=== PATIENT | female | born 1940 | race Caucasian/White ===

== ENCOUNTER → 2024-06-05 | Outpatient (CLI) | payer MEDICARE, BC ==
[2024-06-05 13:51] VITALS: BP 147/77; PULSE 66; RESP 16; TEMP 97.8
--- NOTE | 2024-06-05 14:32 | P.SLEEP ---
History of Present Illness DATE: 06/05/2024 CONSULTATION/NEW PATIENT EVALUATION HISTORY OF PRESENT ILLNESS/SLEEP-WAKE EVALUATION: 83-year-old lady had been evaluated in the sleep center for obstructive sleep apnea hypopnea syndrome. Patient have been diagnosed with obstructive sleep apnea more than 10 years ago in another institution and the results of sleep study are not available. CPAP unit is very old and the patient stopped using it about 1 months ago SLEEP SCHEDULE: Usually sleep schedule from 10 PM to 7 AM. FALLING ASLEEP: Sometimes patient has difficulties to fall asleep. DURING SLEEP: Patient wakes up from sleep once with nocturia, moving from [id number]. No history of hypnogogical hallucinations, sleep paralysis, or cataplexy. DURING THE DAY/WAKE STATE: Patient feels sleepiness during the day. Patient takes naps at 3 PM and 8 PM. [place] sleepiness scale is 4. PAST MEDICAL HISTORY: Hypertension, coronary artery disease, hyperlipidemia, diabetes mellitus. PAST SURGICAL HISTORY: Right knee replacement, coronary angioplasty. MEDICATIONS: Please see below. SOCIAL HISTORY: See below. FAMILY HISTORY: Please see below. REVIEW OF SYSTEMS: Awakenings from sleep, sleepiness during the day. No fevers. No double vision. No recent chest pain. No shortness of breath. No abdominal pain. No bleeding episodes. No blood in urine. No seizure episodes. PHYSICAL EXAMINATION: GENERAL: A pleasant patient without any distress. VITAL SIGNS: Please see below, weight 210 pounds, BMI 39.0. HEENT: PERRLA, EOMI. Evaluation of oropharynx showed tongue protrudes midline, low position of soft palate Mallampati 4. NECK: Supple. No JVD. Thyroid is not palpable. 15 inches in circumference. LUNGS: Clear to percussion and to auscultation. Good air exchange. No wheezing or rhonchi. HEART: S1, S2 regular. No murmurs, gallops or rubs. ABDOMEN: Soft and nontender. Bowel sounds are present. No organomegaly appreciated. EXTREMITIES: No clubbing or cyanosis. WASTE HANDLING TECHNICIAN: Awake, alert, and oriented x3. Cranial nerves 2 to 7 intact. There is no fasciculation or atrophy noted. No focal deficits observed. ASSESSMENT: 1. Obstructive sleep apnea hypopnea syndrome diagnosed more than 10 years ago in another institution. Results of sleep study not available, because office where it was diagnosed closed. CPAP unit is very old. Patient stopped using CPAP equipment 1 months ago. Extremely low position of soft palate Mallampati 4. 2. Hypertension. 3. Coronary artery disease, s/p angioplasty. 4. Hyperlipidemia. 5 diabetes mellitus, hemoglobin A1c according to patient 6.1. 6 . Status post right knee replacement. PLAN: 1. Polysomnography for evaluation of patient's breathing during sleep at the present time. 2. Following plan after reading sleep study. 3. Preferable position during sleep on the side. 4. No driving if patient feels any sleepiness. Patient is aware of civil and criminal liability for unsafe driving. 5. Sleep hygiene with regular sleep time for at least 7.5-8 hours. 6. Watching and losing weight. Thank you very much for referring this patient for consultation. Sincerely, Jose Rowe MD, PhD, FAASM. Diplomat of [place] [employer], Sleep Medicine Board by [place] [employer] [place] [employer] Animal Rehabilitator of [facility] [place] cc: Arthur Menjivar MD Past Medical History Past Medical History: Coronary Artery Disease (CAD), Diabetes Mellitus, Hyper lipidemia, Sleep Apnea/CPAP/BIPAP Additional Past Medical History / Comment(s): HEART ATTACK 1998 History of Any Multi-Drug Resistant Organisms: None Reported Past Surgical History: Joint Replacement, Orthopedic Surgery Additional Past Surgical History / Comment(s): KNEE REPLACED, ANGIOPLASTY 1998 Past Anesthesia/Blood Transfusion Reactions: No Reported Reaction Past Psychological History: No Psychological Hx Reported Smoking Status: Never smoker Past Alcohol Use History: Daily Past Drug Use History: None Reported - Past Family History Mother Family Medical History: CVA/TIA, Hyperlipidemia, Hypertension Additional Family Medical History / Comment(s): ANEMIA Father Family Medical History: CVA/TIA Additional Family Medical History / Comment(s): ULCERS, SNORING Medications and Allergies Home Medications Medication Instructions Recorded Confirmed Type Aspirin [Adult Low Dose Aspirin EC] 81 mg PO DAILY 06/05/24 06/05/24 History Rosuvastatin Calcium 40 mg PO DAILY 06/05/24 06/05/24 History hydroCHLOROthiazide 35 mg PO DAILY 06/05/24 06/05/24 History lisinopriL [Zestril] 10 mg PO DAILY 06/05/24 06/05/24 History metFORMIN HCL 1,000 mg PO BID 06/05/24 06/05/24 History Physical Exam Vitals: Vital Signs Temp Pulse Resp BP Pulse Ox 06/05/24 13:45 97.8 F 66 16 147/77 98 Intake and Output 06/04/24 06/05/24 06/05/24 22:59 06:59 14:59 Other: Weight 95.254 kg Sleep Note - Sleep Data ESS Total: 4 - Sleep Note Sleep Note: Temperature: 97.8 F Pulse Rate: 66 Respiratory Rate: 16 Blood Pressure: 147/77 SpO2: 98 Height: 5 ft 1.5 in Weight: 95.254 kg BMI: Neck Circumference: 15
== END ==
LOC: 3 N SLEEP 13:22
PROVIDERS: ATTEND Internal Medicine
DX: G47.33 Obstructive sleep apnea (adult) (pediatric) (principal); I25.10 Atherosclerotic heart disease of native coronary artery without angina pectoris; E78.5 Hyperlipidemia, unspecified; E11.9 Type 2 diabetes mellitus without complications; Z96.651 Presence of right artificial knee joint; Z98.62 Peripheral vascular angioplasty status
CPT/HCPCS: 99202

== ENCOUNTER 2024-07-08 19:33 | Outpatient (CLI) | payer MEDICARE, BC ==
--- NOTE | 2024-07-16 17:23 | P.PCN ---
Description of Procedure: POLYSOMNOGRAPHY REPORT PROCEDURE(S)/DATE(S): Polysomnography 07/08/2024 CLINICAL: Patient has been seen in the sleep center for evaluation of obstructive sleep apnea-hypopnea syndrome. Please see my consultation. Sleep study has been done for evaluation of patient breathing during the sleep. PROCEDURE: The standard montage for clinical polysomnography included the electroencephalogram, the electrooculogram, the mentalis surface electromyography and Lead II cardiography. The respiratory battery consisted of measurements of nasal/buccal air flow, pressure transducer measurements from nose, thoracic and/or abdominal effort and intercostal surface electromyography. Video monitoring has been done to check for any parasomnia events. Nocturnal oxyhemoglobin saturations were obtained by finger oximetry. Step-peterson titration with positive airway pressure was utilized to control the respiratory events, if necessary. RESULTS: During the diagnostic sleep study sleep efficiency was normal 91.1%. Latency to sleep onset was normal 16.0 min. Sleep architecture showed stage NI was slightly increased to 12.8%, Delta sleep was absent 0%, REM sleep was normal 27.1%. Respiratory channel showed 0 obstructive apneas, 0 mixed apneas, 0 central apneas, 34 hypopneas with lowest oxygen level 89%. Total apnea hypopnea index was 6.1. Heart rate was in the range between 52 and 64, average 58. EMG showed 59.5 periodic limb movements per hour with 0 micro-arousals per hour. IMPRESSIONS: 1. Mild obstructive sleep apnea hypopnea syndrome. 2. Severe periodic limb movements have been documented without significant Mane arousals. 3. Hypertension. 4. Coronary artery disease. Please see other impressions from consultation PLAN: 1. The patient will be started on AutoPap and should use equipment every night for the whole night. 2. Losing weight program. 3. Sleep hygiene with regular time in bed for at least 7-1/2 hours. 4. No driving if feeling sleepiness. 5. Please check iron profile including ferritin level. Low level of iron may increase the risk for periodic limb movements. 6. I will see patient for follow-up visit to explain results of the test, evaluate clinical response on treatment, compliance with treatment and [place] adjustments related to mask fitting, pressure and humidification. 7. We may consider to start patient with lowest doses of dopaminergic agonists to prevent periodic limb movements. Thank you very much for allowing me to participate in the management of your patient. Sincerely, Jose Rowe MD, PhD, FAASM. Diplomat of [place] [employer], Sleep Medicine Board by [place] [employer] Restaurant Maintenance Technician [facility] [place] cc: Arthur Menjivar MD
== END 2024-07-09 06:00 | disposition home or self-care (01) ==
LOC: 3 N SLEEP 19:33
PROVIDERS: ATTEND Internal Medicine
DX: G47.33 Obstructive sleep apnea (adult) (pediatric) (principal); G47.61 Periodic limb movement disorder; I10 Essential (primary) hypertension; I25.10 Atherosclerotic heart disease of native coronary artery without angina pectoris
CPT/HCPCS: 95810